=== PATIENT | male | born 1950 | race Caucasian/White ===

== ENCOUNTER 2024-05-19 08:24 | Inpatient (IN) | payer OTHER ==
[2024-05-19] MEDS ORDERED: NA CHLORIDE 0.9% 1,000 ML ONE (09:40)
[2024-05-19] MEDS ORDERED: BISACODYL 10 MG RECTAL SUPP ONE (09:40)
[2024-05-19] MEDS ORDERED: ASPIRIN 81 MG CHEWABLE TABLET ONE (09:40)
[2024-05-19] MEDS ORDERED: LACTULOSE 20 GM/30 ML UCUP ONE (09:41)
[2024-05-19 10:18] LABS: Absolute Lymphocytes (CBC) 0.5 K/uL (0.7-4.9); Absolute Monocytes 1.1 K/uL (0.1-1.3); Absolute Neutrophil 8.1 K/uL (1.8-8.0); Basophils % 0.2 % (0-1.3); Eosinophils % 0.3 % (0-4.4); Hematocrit 45.9 % (39.6-49.0); Hemoglobin 14.8 g/dL (13.6-17.9); Lymphocytes % 5.3 % (15.3-44.8); MCH 30.9 pg (27.0-35.0); MCHC 32.2 g/dL (32.0-36.0); MPV 7.8 fL (7.6-11.3); Monocytes % 10.9 % (3.3-12.3); Neutrophils % 83.3 % (41.7-73.7); Platelets 310 thou/uL (152-406); RBC Red Blood Cell Count 4.78 M/uL (4.33-5.43); Red Cell Distribution Width 14.6 % (12.1-15.2)
[2024-05-19 10:21] LABS: PT Prothrombin Time 13.9 SECONDS (9.4-12.5); Protime INR 1.25
--- NOTE | 2024-05-19 10:24 | RAD REPORT ---
EXAM: Head Brain Wo Cont HISTORY: HEADACHE COMPARISON: None TECHNIQUE: Multiple contiguous axial images were obtained for a CT of the brain without contrast. Sag ittal and coronal reformats were performed. One or more of the following dose reduction techniques were used: Automated exposure control, adjus tment of the mA and kV according to patient size, and iterative reconstruction. Unless otherwise specified, incidental findings do not require dedicated imaging follow-up. FINDINGS: No evidence of hydrocephalus, intracranial hemorrhage, or extra-axial fluid collection. Mild brain atrophy with mild periventricular and deep white matter chronic microvascular ischemic ch anges present. The calvarium is intact. The visualized paranasal sinuses and mastoid air cells are essentially clear . IMPRESSION: No evidence of acute intracranial abnormality.
--- NOTE | 2024-05-19 10:26 | RAD REPORT ---
EXAMINATION: ONE VIEW CHEST XR CLINICAL INDICATION: Male, 73 years old.,CHEST PAIN TECHNIQUE: Frontal chest projection is submitted. Examination is limited by patient positioning and t echnique. COMPARISON: No prior exam. FINDINGS: Large right pleural effusion. Hazy opacities in the central right lung, could relate to atelectasis o r a degree of edema. Left lung is clear, although there is some leftward shift of the mediastinal structures. No pneumothorax. The heart is upper limit of normal in size. IMPRESSION: Large right pleural effusion. Central hazy right lung opacities, could reflect atelectasis or a degre e of edema.
--- NOTE | 2024-05-19 10:45 | RAD REPORT ---
EXAMINATION: Extrem Venous W Compress Arslan CLINICAL INDICATION: [facility] MAIN Pain;Swelling Bed Name: 5 N TECHNIQUE: Complete bilateral duplex sonography of the BILATERAL lower extremity veins was performed. The examination included compression for vein patency, color Doppler imaging and flow augmentation in response to distal compression of the distal external iliac, common femoral, femoral, popliteal, t ibial, and great and small saphenous veins. COMPARISON: No prior exam. FINDINGS: Partial compressibility of the proximal left great saphenous vein. Duplex sonography testing of the v eins of the BILATERAL lower extremity was performed. Color flow imaging shows all veins to be compressible with [id number] color filling. Pulsatile and phasic flow is present within all lower e xtremity deep and remainder of the superficial veins examined. IMPRESSION: There is no deep vein vein thrombosis. Partial compressibility of the proximal left great saphenous vein, may relate to superficial thrombop hlebitis.
--- NOTE | 2024-05-19 10:52 | RAD REPORT ---
EXAM: CT CHEST, ABDOMEN AND PELVIS WITHOUT CONTRAST CLINICAL INDICATION: Male, 73 years old. HS MAIN CONSTIPATION NO CONTRAST Bed Name: 5 TECHNIQUE: CT chest, abdomen and pelvis was performed, without IV contrast, as per department protoco l. Axial, sagittal and coronal reconstructions were obtained. One or more of the following dose reduction techniques were used: Automated exposure control, adjustment of the mA and/or kV according to the patient size, and/or iterative reconstruction. Unless otherwise specified, incidental findings do not require dedicated imaging follow-up. COMPARISON: No prior exam. FINDINGS: The lack of intravenous contrast limits the sensitivity of this exam for evaluation of solid visceral organs, vascular structures, and retroperitoneum. Chest: LOWER NECK/CHEST WALL: Visualized thyroid gland and soft tissues are normal. LUNGS AND AIRWAYS: Airways are clear. Central right lung patchy groundglass opacification, could refl ect atelectasis or a mild degree of edema.. No nodules. PLEURA: Large right pleural effusion. Expansile appearance at the right base, and lobulation along th e visceral pleura, suggesting loculation. Mild pleural thickening noted along the costophrenic angle.. No pneumothorax. Hemidiaphragms are normally positioned. MEDIASTINUM AND LYMPH NODES: No mediastinal mass or fluid collection. Normal size mediastinal, hilar, and axillary lymph nodes. THORACIC AORTA: Normal caliber and configuration. PULMONARY ARTERIES: Normal caliber. HEART: Unremarkable. Abdomen/Pelvis LIVER: Normal in size and contour. No focal lesion. GALLBLADDER/BILE DUCTS: No biliary ductal dilatation. PANCREAS: No mass, ductal dilation, or thalia-pancreatic fluid. SPLEEN: Normal size. No focal lesion. ADRENALS: Normal; no mass. KIDNEYS AND URETERS: Normal size and contour. No hydronephrosis. GASTROINTESTINAL TRACT: Stomach is non-dilated. Small bowel has normal course and caliber. No colonic wall thickening or pericolonic inflammatory changes. PERITONEUM: Mild free pelvic fluid in the cul-de-sac. No free air. LYMPH NODES: No lymphadenopathy. ABDOMINAL AORTA AND OTHER VESSELS: Normal caliber aorta and IVC. URINARY BLADDER: Normal contour. REPRODUCTIVE ORGANS: No pathologic process. MUSCULOSKELETAL: No acute or suspicious osseous abnormality. ADDITIONAL FINDINGS: None IMPRESSION: Large right pleural effusion with findings suggesting at least partial loculation. Central right lung patchy groundglass opacification, could reflect atelectasis or a mild degree of ed zhou. Trace free pelvic fluid. No other acute findings in the abdomen and pelvis.
--- NOTE | 2024-05-19 11:37 | EDPHYS ---
Physician Documentation [facility] Name: Anderson Duenas Age: 73 yrs Sex: Male : 1950 Arrival Date: 05/19/2024 Time: 08:24 Bed 5 Private MD: Hipolito Ash HPI: 05/19 11:28 This 73 yrs old Male presents to ER via Wheelchair with complaints of Cardiac radha work up Per Dr Godinez. 11:28 The patient presents with pain, swelling. The complaints affect the right leg and left radha leg. Context: The problem was sustained at an unknown site, resulted from an unknown cause, the patient can fully bear weight. Onset: The symptoms/episode began/occurred 5 day(s) ago. Modifying factors: The symptoms are alleviated by nothing. the symptoms are aggravated by nothing. Associated signs and symptoms: Pertinent positives: swelling, of the right leg and left leg. The patient has shortness of breath with light activity, while working. The patient's shortness of breath is aggravated by exertion, light activity, supine position, talking, walking, is alleviated by rest, sitting up, application of supplemental oxygen. weak, dementia, progressive sob, edema. Historical: - Allergies: 08:51 No Known Allergies; iw - PMHx: 08:51 Hypertensive disorder; iw - PSHx: 08:51 hand; iw - Immunization history:: Adult Immunizations up to date. - Infectious Disease History:: Denies. - Social history:: Smoking status: Patient denies any tobacco usage or history of. Smoking status: Patient/guardian denies using tobacco, but has a distant history of tobacco abuse. ROS: 11:29 Constitutional: Negative for fever, chills, and weight loss, Eyes: Negative for injury, radha pain, redness, and discharge, ENT: Negative for injury, pain, and discharge, Neck: Negative for injury, pain, and swelling, Cardiovascular: Negative for chest pain, palpitations, and edema, Abdomen/GI: Negative for abdominal pain, nausea, vomiting, diarrhea, and constipation, Back: Negative for injury and pain, : Negative for injury, bleeding, discharge, and swelling, Skin: Negative for injury, rash, and discoloration, Neuro: Negative for headache, weakness, numbness, tingling, and seizure, Psych: Negative for depression, anxiety, suicide ideation, homicidal ideation, and hallucinations, Allergy/Immunology: Negative for hives, rash, and allergies, Endocrine: Negative for neck swelling, polydipsia, polyuria, polyphagia, and marked weight changes, Hematologic/Lymphatic: Negative for swollen nodes, abnormal bleeding, and unusual bruising, 11:29 Respiratory: Positive for cough, shortness of breath, at rest. 11:29 MS/extremity: Positive for pain, swelling, tenderness, of the right leg and left leg, Exam: 11:29 Constitutional: This is a well developed, well nourished patient who is awake, alert, radha and in no acute distress. Head/Face: Normocephalic, atraumatic. Eyes: Pupils equal round and reactive to light, extra-ocular motions intact. Lids and lashes normal. Conjunctiva and sclera are non-icteric and not injected. Cornea within normal limits. Periorbital areas with no swelling, redness, or edema. ENT: Nares patent. No nasal discharge, no septal abnormalities noted. Tympanic membranes are normal and external auditory canals are clear. Oropharynx with no redness, swelling, or masses, exudates, or evidence of obstruction, uvula midline. Mucous membranes moist. Neck: Trachea midline, no thyromegaly or masses palpated, and no cervical lymphadenopathy. Supple, full range of motion without nuchal rigidity, or vertebral point tenderness. No Meningismus. Chest/axilla: Normal chest wall appearance and motion. Nontender with no deformity. No lesions are appreciated. Cardiovascular: Regular rate and rhythm with a normal S1 and S2. No gallops, murmurs, or rubs. Normal PMI, no JVD. No pulse deficits. Abdomen/GI: Soft, non-tender, with normal bowel sounds. No distension or tympany. No guarding or rebound. No evidence of tenderness throughout. Back: No spinal tenderness. No costovertebral tenderness. Full range of motion. Male : Normal genitalia with no discharge or lesions. Skin: Warm, dry with normal turgor. Normal color with no rashes, no lesions, and no evidence of cellulitis. Neuro: Awake and alert, GCS 15, oriented to person, place, time, and situation. Cranial nerves II-XII grossly intact. Motor strength 5/5 in all extremities. Sensory grossly intact. Cerebellar exam normal. Normal gait. Psych: Awake, alert, with orientation to person, place and time. Behavior, mood, and affect are within normal limits. 11:29 Respiratory: mild respiratory distress is noted, Respirations: no acute changes, that is mild is noted, Breath sounds: decreased breath sounds, that are moderate, are located in both bases, are heard in the right middle lobe, right lower lobe, right posterior middle lobe and right posterior lower lobe, rhonchi, that are mild, are scattered, stridor, is not appreciated, + upper airway congestion. Respiratory rate: 20 11:48 ECG was reviewed by the Attending Physician. [facility] Vital Signs: 08:49 BP 126 / 34; Pulse 79; Resp 16; Temp 97.1; Pulse Ox 99% on R/A; Weight 78.02 kg; Height iw 6 ft. 1 in. ; 10:17 BP 121 / 48; Pulse 70; Resp 16; Pulse Ox 92% ; bp 11:19 BP 130 / 42; Pulse 71; Resp 15; Pulse Ox 92% ; hb 14:00 BP 124 / 54; Pulse 83; Resp 16; Temp 98.1; Pulse Ox 97% on R/A; bp 15:03 BP 126 / 62; Pulse 74; Resp 16; Temp 98; Pulse Ox 94% ; bp 08:49 Body Mass Index 22.69 (78.02 kg, 185.42 cm) iw MDM: 08:33 Medical Screening Exam initiated radha 11:31 Differential diagnosis: Anemia Anxiety Reaction asthma, Bronchitis CHF exacerbation. radha Antibiotic administration: Not indicated. Differential Diagnosis altered mental status, sepsis, flu. Immunization status: Pneumococcal vaccine: within last 5 years. Influenza vaccine: within last 5 years. Data reviewed: vital signs, nurses notes, lab test result(s), EKG, radiologic studies, plain films. Consideration of Admission/Observation Patient was admitted/placed on observation. Escalation of care including admission/observation considered. I considered the following discharge prescriptions or medication management in the emergency department Medications were administered in the Emergency Department. See MAR. Independent interpretation of the following test(s) in the Emergency Department EKG: See my EKG interpretation above. Test considered but Not performed: Ultrasound no 2 d echo. Historians other than the Patient: Spouse/Significant Other: well/ better informed. Care significantly affected by the following chronic conditions: Hypertension, weight loss. Counseling: I had a detailed discussion with the patient and/or guardian regarding the historical points, exam findings, and any diagnostic results supporting the discharge/admit diagnosis, lab results, radiology results, the need for further work-up and treatment in the hospital. 05/19 08:36 Order name: Basic Metabolic Panel [facility] 05/19 08:36 Order name: CBC with Diff; Complete Time: 11:23 [facility] 05/19 08:36 Order name: LFT's [facility] 05/19 08:36 Order name: Magnesium [facility] 05/19 08:36 Order name: NT PRO-BNP [facility] 05/19 08:36 Order name: PT-INR; Complete Time: 11:23 [facility] 05/19 08:36 Order name: Troponin HS [facility] 05/19 08:36 Order name: Urinalysis w/ reflexes [facility] 05/19 08:36 Order name: Lipase [facility] 05/19 08:36 Order name: XRAY Chest (1 view); Complete Time: 11:23 [facility] 05/19 09:01 Order name: CT Head Brain wo Cont; Complete Time: 11: [facility] 05/19 09:01 Order name: US Extremity Venous W Compression Arslan; Complete Time: 11: [facility] 05/19 09:14 Order name: Chest Abd Pelvis Wo Con; Complete Time: 11:23 [facility] 05/19 12:59 Order name: US [facility] 05/19 13:13 Order name: CT [facility] 05/19 13:55 Order name: RAD [facility] 05/19 14:46 Order name: US [facility] 05/19 08:36 Order name: EKG; Complete Time: 08:36 [facility] 05/19 11:45 Order name: CONS Physician Consult [facility] 05/19 08:36 Order name: Cardiac monitoring; Complete Time: 10: [facility] 05/19 08:36 Order name: EKG - Nurse/Tech; Complete Time: 10: [facility] 05/19 08:36 Order name: IV Saline Lock; Complete Time: 10: [facility] 05/19 08:36 Order name: Labs collected and sent; Complete Time: 10: [facility] 05/19 08:36 Order name: O2 Per Protocol; Complete Time: 10: [facility] 05/19 08:36 Order name: O2 Sat Monitoring; Complete Time: 10: [facility] 05/19 10:45 Order name: Labs - recollect needed: re collect green top; Complete Time: 11:09 bd EC:48 Rate is 69 beats/min. Rhythm is regular. QRS Drewsey is Normal. MO interval is normal. QRS radha interval is normal. QT interval is normal. No Q waves. T waves are Normal. Clinical impression: NSR w/ Non-specific ST/T Changes, Abnormal EKG without significant change, and No evidence of ischemia. Interpreted by me. Reviewed by me. Administered Medications: 10:08 Drug: Aspirin PO Chewable Tablet 162 mg PO once Route: PO; bp 10:57 Follow up: Response: No adverse reaction bp 10:08 Drug: NS 0.9% IV 1000 ml IV at 125 ml/hr continuous Route: IV; Rate: 125 ml/hr; Site: bp right forearm; 15:04 Follow up: IV Status: Infusion continued upon admission bp 10:08 Drug: Dulcolax MO Suppository 10 mg MO once Route: MO; bp 10:57 Follow up: Response: No adverse reaction bp 10:08 Drug: Lactulose PO 30 grams 45 ml PO once Volume: 45 ml; Route: PO; bp 10:57 Follow up: Response: No adverse reaction bp Disposition Summary: 05/19/24 11:36 Hospitalization Ordered Notes: Hospitalization Status: Inpatient Admission radha Provider: Feliciano Godinez cha Location: Telemetry/MedSurg (Inpatient) radha Condition: Fair radha Problem: new radha Symptoms: are unchanged radha Bed/Room Type: Standard [facility] Room Assignment: 222(05/19/24 14:02) bd Diagnosis - Dyspnea radha - Pleural effusion, not elsewhere classified - large right radha - Edema, unspecified radha Forms: - Medication Reconciliation Form radha - SBAR form radha - Leadership Thank You Letter radha Signatures: Dispatcher [employer] EDMS Ellen Ramirez Corey, MD MD cha Williams, Irene, RN RN iw Rigoberto Johnston RN RN bp Corrections: (The following items were deleted from the chart) 09:02 09:02 Abdomen Pelvis Wo Con+CT.RAD.BRZ ordered. EDMS EDMS 09:02 09:02 Extrem Venous W Compression Arslan+US.RAD.BRZ ordered. EDMS EDMS 14:02 11:36 radha bd
--- NOTE | 2024-05-19 11:37 | ER ---
Nurse's Notes [facility] Name: Anderson Duenas Age: 73 yrs Sex: Male : 1950 Arrival Date: 05/19/2024 Time: 08:24 Bed 5 Private MD: Diagnosis: Dyspnea;Pleural effusion, not elsewhere classified-large right;Edema, unspecified Presentation: 05/19 08:49 Chief complaint: Patient states: has lost a lot of weight , has been weak, not eating iw enough, has a low appetite. Ebola Screen: No symptoms or risks identified at this time. Initial Sepsis Screen: Does the patient meet any 2 criteria? No. Patient's initial sepsis screen is negative. Does the patient have a suspected source of infection? No. Patient's initial sepsis screen is negative. Risk Assessment: Do you want to hurt yourself or someone else? Patient reports no desire to harm self or others. 08:49 Method Of Arrival: Wheelchair iw 08:49 Acuity: SENG 3 iw 08:49 Onset of symptoms was May 17, 2024. iw 08:51 Coronavirus screen: At this time, the client does not indicate any symptoms associated iw with coronavirus-19. Triage Assessment: 09:00 General: Appears in no apparent distress. Behavior is calm, cooperative, appropriate bp for age. Pain: Denies pain. EENT: No deficits noted. Neuro: No deficits noted. Cardiovascular: Rhythm is sinus rhythm. Respiratory: No deficits noted. GI: No signs and/or symptoms were reported involving the gastrointestinal system. : No signs and/or symptoms were reported regarding the genitourinary system. Derm: No deficits noted. Musculoskeletal: No deficits noted. Historical: - Allergies: 08:51 No Known Allergies; iw - PMHx: 08:51 Hypertensive disorder; iw - PSHx: 08:51 hand; iw - Immunization history:: Adult Immunizations up to date. - Infectious Disease History:: Denies. - Social history:: Smoking status: Patient denies any tobacco usage or history of. Smoking status: Patient/guardian denies using tobacco, but has a distant history of tobacco abuse. Screenin:00 [facility] ED Fall Risk Assessment (Adult) History of falling in the last 3 months, bp including since admission No falls in past 3 months (0 pts) Confusion or Disorientation No (0 pts) Intoxicated or Sedated No (0 pts) Impaired Gait No (0 pts) Mobility Assist Device Used No (0 pt) Altered Elimination No (0 pt) Score/Fall Risk Level 0 - 2 = Low Risk Oriented to surroundings. Abuse screen: Denies threats or abuse. Denies injuries from another. Nutritional screening: No deficits noted. Tuberculosis screening: No symptoms or risk factors identified. Assessment: 09:00 General: Appears in no apparent distress. Behavior is calm, cooperative, appropriate bp for age. 11:20 Reassessment: Patient appears in no apparent distress at this time. No changes from hb previously documented assessment. Patient and/or family updated on plan of care and expected duration. Pain level reassessed. 13:00 Reassessment: ADMIT IN PROCESS. bp 14:30 Reassessment: REPORT FAXED FOR RM 222. bp Vital Signs: 08:49 BP 126 / 34; Pulse 79; Resp 16; Temp 97.1; Pulse Ox 99% on R/A; Weight 78.02 kg; Height iw 6 ft. 1 in. ; 10:17 BP 121 / 48; Pulse 70; Resp 16; Pulse Ox 92% ; bp 11:19 BP 130 / 42; Pulse 71; Resp 15; Pulse Ox 92% ; hb 14:00 BP 124 / 54; Pulse 83; Resp 16; Temp 98.1; Pulse Ox 97% on R/A; bp 15:03 BP 126 / 62; Pulse 74; Resp 16; Temp 98; Pulse Ox 94% ; bp 08:49 Body Mass Index 22.69 (78.02 kg, 185.42 cm) iw ED Course: 08:33 Patient arrived in ED. mr 08:33 Hipolito Stoll MD is Attending Physician. radha 08:50 Triage completed. iw 08:57 Rigoberto Johnston, RN is Primary Nurse. bp 09:00 Arm band placed on. bp 09:00 Patient has correct armband on for positive identification. bp 09:19 CT Head Brain wo Cont In Process Unspecified. EDMS 09:19 Chest Abd Pelvis Wo Con In Process Unspecified. EDMS 09:34 US Extremity Venous W Compression Arslan In Process Unspecified. EDMS 09:46 XRAY Chest (1 view) In Process Unspecified. EDMS 10:08 Initial lab(s) drawn, by me, sent to lab. EKG done, by ED staff, reviewed by Hipolito Stoll MD. Inserted saline lock: 22 gauge in right forearm, using aseptic technique. Blood collected. Flushed with 10 mL NS. 11:34 Feliciano Godinez MD is Hospitalizing Provider. radha 14:48 [id number] CM met with his male friend, at the bedside, in the ED exam room. ane Patient identified by name and . Demographic sheet confirmed. Patient states he lives with his Mary in a single story home. He reports that prior to admission, he preforms ADLs independently, just "slowly". No DME in the home, no HH, home oxygen, or other medical services at this time. PCP is Dr. Godinez. Patient is unsure if he has an MPOA in place or not. His preferred plan is to return home upon discharge and states his Mary will transport him home. CM team will continue to follow and coordinate care during this hospital stay. 15:03 No provider procedures requiring assistance completed. Patient admitted, IV remains in bp place. 15:05 Provided Education on: N/A. bp Administered Medications: 10:08 Drug: Aspirin PO Chewable Tablet 162 mg PO once Route: PO; bp 10:57 Follow up: Response: No adverse reaction bp 10:08 Drug: NS 0.9% IV 1000 ml IV at 125 ml/hr continuous Route: IV; Rate: 125 ml/hr; Site: bp right forearm; 15:04 Follow up: IV Status: Infusion continued upon admission bp 10:08 Drug: Dulcolax NJ Suppository 10 mg NJ once Route: NJ; bp 10:57 Follow up: Response: No adverse reaction bp 10:08 Drug: Lactulose PO 30 grams 45 ml PO once Volume: 45 ml; Route: PO; bp 10:57 Follow up: Response: No adverse reaction bp Medication: 09:00 VIS not applicable for this client. bp Outcome: 11:36 Decision to Hospitalize by Provider. radha 15:05 Admitted to Med/surg accompanied by nurse, family with patient, via stretcher, room bp 222, with chart, 15:05 Condition: stable 15:05 Instructed on the need for admit, 15:11 Patient left the ED. iw Signatures: Dispatcher [employer] EDMS Hipolito Stoll MD MD cha Rivera, Mary, Reg Reg Evangelina Raymond RN RN iw Viry Castle, RN RN Rigoberto Navarrete RN RN bp Elliott, Andie RN RN ane Corrections: (The following items were deleted from the chart) 08:52 08:49 BP 116 / 31; Pulse 79bpm; Resp 16bpm; Pulse Ox 99% RA; Temp 97.1F; iw tod
[2024-05-19 11:53] LABS: Albumin/Globulin Ratio 0.6 (1.1-1.8); Anion Gap 9.9 mEq/L (5.0-15.0); Bilirubin Direct 0.6 mg/dL (0-0.2); Bilirubin Indirect, Calculated 0.5 mg/dL (0.2-0.8); Bilirubin Total 1.1 mg/dL (0.2-1.0); Globulin 3.5 g/dL (2.3-3.5); Magnesium 2.3 mg/dL (1.6-2.4); Potassium 3.9 mEq/L (3.5-5.1); Protein, Total 5.5 g/dL (6.4-8.2); Troponin High Sensitivity 28.5 pg/mL (<58.9)
[2024-05-19] MEDS: FUROSEMIDE 20 MG/ 2ML VIAL IV SCH ×2 (12:27→15:43)
--- NOTE | 2024-05-19 12:39 | P.CNS ---
Date of Consult: 05/19/24 Reason for Consult: Pleural effusion Chief Complaint: Shortness of breath History of Present Illness: Patient is 73 years of age admitted with progressive dyspnea lower extremity edema weight loss present at the bedside has been going on for quite some time p rior history of any coronary artery disease denies any fever chills or chest pain patient is disoriented confused Allergies No Known Allergies Allergy (Unverified 05/19/24 12:36) - Past Medical/Surgical History -: Hypertension Review of Systems is unable to be obtained Physical Examination General: Alert, Delirious Respiratory: Diminished (Condition on the right side) Cardiovascular: Regular rate/rhythm, Normal S1 S2, Edema (Significant peripheral edema with mottling of his toes), Systolic murmur (Loud systolic murmur) Gastrointestinal: Normal bowel sounds, Soft and benign Musculoskeletal: No clubbing Integumentary: No rashes, No breakdown Laboratory Data (last 24 hrs) 05/19/24 05/19/24 05/19/24 11:06 10:07 10:07 WBC 9.80 Hgb 14.8 Hct 45.9 Plt Count 310 PT 13.9 H INR 1.25 Sodium 139 Potassium 3.9 BUN 27 H Creatinine 0.70 Glucose 132 H Magnesium 2.3 Total Bilirubin 1.1 H AST 23 ALT 19 Alkaline Phosphatase 117 Lipase 35 - Problems (1) Pleural effusion due to congestive heart failure Current Visit: Yes Status: Acute Plan: Patient is 73 years of age with no significant past medical history does not smoke admitted with progressive dyspnea is currently delirious present at the bedside: Lower extremity edema patient has a massive right-sided pleural effusion factors for underlying malignancy has never smoked BNP significantly elevated her white count is normal function tests are also normal will patient will be admitted to the hospital evaluate for thoracentesis also given him some Lasix patient is tachypneic placed on BiPAP large thromboembolism urgent echocardiogram
--- NOTE | 2024-05-19 12:59 | RAD REPORT ---
EXAMChest CLINICAL HISTORY: Pleural effusion. TECHNIQUE: Sonographic evaluation of the right pleural space performed. FINDINGS: Large right pleural effusion. No loculation seen IMPRESSION: Large right pleural effusion
--- NOTE | 2024-05-19 13:12 | RAD REPORT ---
EXAM:Chest Angio CLINICAL HISTORY: Chest pain TECHNIQUE: 100 cc 370 Isovue administered intravenously. This examination was performed according to an angiographic protocol with 3D post-processing. This involves 3D reconstructions, MIPs, volume rendered images and/or shaded surface rendering. One or more of the following dose reduction techniqu es were used: Automated exposure control, adjustment of the mA and/or kV according to patient size, and/or iterative reconstruction. Unless otherwise specified, incidental findings do not require dedic ated imaging follow-up. [id number]. COMPARISON: No prior exam. FINDINGS: A pulmonary embolus is not seen. Aortic root 4.6 cm No pericardial effusion. Large right pleural effusion which is partially subpulmonic. Minimal loculation. Right basilar atelec tasis.. Mild groundglass opacities right lung. IMPRESSION: No evidence of a pulmonary embolism. Large right pleural effusion. 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
--- NOTE | 2024-05-19 13:55 | RAD REPORT ---
Procedure: Chest Single View HISTORY: Thoracentesis FINDINGS: A right pneumothorax is not seen status post thoracentesis
--- NOTE | 2024-05-19 14:45 | RAD REPORT ---
PROCEDURE: ULTRASOUND GUIDED THORACENTESIS CLINICAL INDICATION: [facility] MA[facility] R sided effusion PROCEDURE DETAILS: Consent: Informed consent for the procedure including risks, benefits and alternatives was obtained a nd time-out was performed prior to the procedure. Preparation: The site was prepared and draped using maximal sterile barrier technique including cutan eous antisepsis. Procedure: Initial limited thoracic ultrasound was performed and a large pleural effusion was seen. A safe window for thoracentesis was identified with ultrasound to dayron a suitable access site. Local anesthesia was administered. The right pleural cavity was accessed, and fluid return confirmed positi on. A 6F Fhu-J-Ohzvrckm catheter was placed and fluid was drained. The catheter was removed, and a sterile bandage was applied. Estimated blood loss: Less than 10 mL. IMPRESSION: SUCCESSFUL RIGHT ultrasound guided thoracentesis, yielding 1500 mL of serosanguineous fluid. Additional procedure(s): Limited thoracic ultrasound. PLAN: Aspirated fluid was sent for analysis.
[2024-05-19] MEDS ORDERED: ALBUTEROL 2.5 MG/3 ML NEB SOL NEB PRN (14:57)
[2024-05-19] MEDS ORDERED: IPRATROPIUM BROM 0.5MG/2.5ML NEB PRN (14:57)
[2024-05-19] MEDS ORDERED: ONDANSETRON 4 MG/2 ML VIAL IV PRN (14:57)
[2024-05-19] MEDS ORDERED: MORPHINE 2 MG/ML SYR IV PRN (14:57)
[2024-05-19] MEDS ORDERED: ACETAMINOPHEN 325 MG TABLET PO PRN (14:57)
[2024-05-19] MEDS ORDERED: FUROSEMIDE 20 MG/ 2ML VIAL IV SCH (17:00)
[2024-05-19 17:05] LABS: Body Fluid WBC 2969 /mm^3
[2024-05-19 18:16] LABS: Tube # #2
[2024-05-19 18:17] LABS: Appearance TURBID (CLEAR); Body Fluid Lymphocytes 5 %; Body Fluid Source PLEURAL; Color of Supernate Not Xanthochromic (Not Xantho); Color of fluid Red (COLORLESS); Fluid Total Cells Count 100
[2024-05-19] MEDS: ENOXAPARIN 40 MG/0.4 ML SQ SCH (18:25)
--- NOTE | 2024-05-19 22:18 | HP ---
Date of Admission: 05/19/2024 Chief Complaint: Leg swelling and shortness of breath. History Of Present Illness: This is a 73-year-old very pleasant male patient, who came into my offic e day before yesterday with complaints of shortness of breath and leg swelling. The patient was not quite clear on details of his symptoms, but after talking to him for some time, we found out that he has been having some problems with shortness of breath with activity lately and says that he is not a ble to sleep well at night time also and we could not get clear-cut details if he could not sleep wel l at night because of shortness of breath or some other reason, but obviously that is a relatively ne w problem for him, so I believe that it is associated with some degree of shortness of breath at nigh ttime. Denies any chest pain. No diaphoresis. No nausea, vomiting. No abdominal pain. He has bee n having some upper back pain lately and has seen chiropractor for that lately. After the patient wa s evaluated, he was noted to have significant systolic murmur with presence of crackles in lower half of both lungs and significant bilateral pedal edema, so I was concerned about congestive heart failu re and some severe valvular heart disease and it was recommended for the patient to get admitted to [facility] for further evaluation and management. Unfortunately, he refused to do so as he told me he had to go home to take care of certain things including his and he informed me that he will c ome back for admission in 2 days which is today and as he had mentioned, he came to emergency room th is morning and after he was evaluated, he was admitted to the hospital. After the patient's admissio n to the hospital, Pulmonary and Cardiology consultation was requested and Dr. Diaz has already s een him from Pulmonary Service and details were discussed with him as well. I saw him this evening i n his hospital room and his sister was present with him at bedside. Allergies: NO KNOWN ALLERGIES. Medications: He does not take any medications at home. Review of Systems: Cardiovascular: As mentioned above. Respiratory: As mentioned above. 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 All other systems reviewed and negative. Past Medical History: Significant for hypertension, hyperlipidemia, benign prostatic hypertrophy, os teoarthritis at multiple sites. Past Surgical History: Tonsillectomy, appendectomy, carpal tunnel syndrome surgery in right hand don e in April of 2023. Family History: Father , had myocardial infarction and Parkinson's disease. Mother , had se psis after gallbladder surgery and sister has diabetes and hypertension. Social History: Negative for smoking. Use of alcohol, drinks 1 or 2 beers daily. Physical Examination: Vital Signs: Temperature 98.3, pulse 68, respiratory rate 24, blood pressure is 140/51, oxygen satur ation 94% on room air. Height 6 feet, weight 161 pounds. General: Awake, alert, oriented, not in distress. HEENT: Head atraumatic, normocephalic. Conjunctivae nonerythematous. Sclerae white. Mouth, no thr ush or edema noted. Ears/Nose, no mass, lesion, discharge noted. Neck: Supple. No JVD, lymph nodes, bruit, thyromegaly noted. Lungs: Diminished air entry in the right lower lung field with presence of bilateral rales noted in lower 1/3 of both lung jordan. Heart: Heart sounds normal. Presence of loud systolic murmur. Abdomen: Soft, bowel sounds normal. No guarding, rigidity, tenderness, mass, hepatosplenomegaly, dis tention, or bruit noted. Extremities: Bilateral grade 3 pedal edema extending up to both knees. Skin: No rash, ulcer, cellulitis. Lymphatics: No lymph node enlargement in neck, supraclavicular, infraclavicular region. Neuro: No focal neurological deficit. Chest: Unremarkable. External Genitalia: Deferred. Rectal: Deferred. Laboratory Data: White count 9.8, hemoglobin 14.8, platelets 310. Sodium 139, potassium 3.9, chlori de 105, bicarb 28, BUN 27, creatinine 0.70, glucose 132. Liver function tests unremarkable. Troponi n 28.5 on the first set and 33.6 on the second set. ProBNP 8863. Lipase 35. Chest x-ray shows larg e right-sided pleural effusion. CAT scan of the chest per PE protocol was negative for pulmonary emb olism and showed large right-sided pleural effusion. Aortic root aneurysm with 4.6 cm size. CAT sca n of the head was negative for any acute intracranial changes. CAT scan of the chest, abdomen, pelvi s was negative except large right-sided pleural effusion. Venous Doppler of lower extremity was nega tive for DVT. Impression: 1.Congestive heart failure, acute. 2.Valvular heart disease. 3.Hypertension. 4.Hyperlipidemia. 5.Osteoarthritis, multiple sites. 6.Benign prostatic hypertrophy. 7.Memory loss, rule out dementia. Plan: We will admit the patient to hospital for further evaluation and management of this problem. The patient is appropriate for inpatient and is expected to spend 2 midnights in the hospital. The eun mcadams had thoracentesis done by interventional radiologist after his admission to the hospital under ultrasound guidance and about 1500 cc of fluid was removed and Dr. Diaz has ordered appropriate testing to be done on this pleural fluid and we will follow up on those results and also follow up [facility] Dr. Diaz. Echocardiogram was ordered to evaluate left ventricular ejection fraction and to lo ok into this valvular heart disease that I am concerned about and depending on the findings of echo a nd Cardiology consultation, we will provide the patient with final recommendation on the treatment pl an. We will go ahead and continue Lasix per order. Monitor intake, output, daily weight, electrolyt es, and renal function. DVT prophylaxis will be given using Lovenox per order. We will monitor bloo d pressure if necessary. Consider antihypertensive medication, but not necessary at this point. For hyperlipidemia, no need for further intervention and the patient is not on any medication for that. For benign prostatic hypertrophy, the patient does not take any medications and no need for any inte rvention on it. The patient is having some memory problem lately, that is resulting in some confusio n and he will need to be evaluated for dementia workup by neurologist on an elective outpatient basis after we address current more acute problem which is his cardiac problem. Total time spent today was 85 minutes that includes communication with ER physician, communication wi body builder, review of emergency room visit record, and performing today's evaluation and manage ment. TJ/EVA Voice ID: [id number]
[2024-05-20 04:29] LABS: Urine Bilirubin NEGATIVE (Negative); Urine Blood Negative (Negative); Urine Clarity Clear (Clear); Urine Color Yellow (Yellow); Urine Glucose NEGATIVE (Negative); Urine Ketones NEGATIVE (Negative); Urine Microscopic Reflex YN NO UMIC; Urine Nitrite NEGATIVE (Negative); Urine Protein NEGATIVE (Negative); Urine Urobilinogen Normal (Normal); Urine pH 5.5 (5.0-7.0)
[2024-05-20 04:51] LABS: Absolute Eosinophils 0.2 K/uL (0-0.5); Absolute Lymphocytes (CBC) 0.8 K/uL (0.7-4.9); Absolute Monocytes 1.1 K/uL (0.1-1.3); Absolute Neutrophil 6.2 K/uL (1.8-8.0); Basophils % 0.3 % (0-1.3); Hematocrit 43.4 % (39.6-49.0); Hemoglobin 14.3 g/dL (13.6-17.9); Lymphocytes % 9.5 % (15.3-44.8); MCH 31.1 pg (27.0-35.0); MCV 94.2 fL (80-100); MPV 7.7 fL (7.6-11.3); Monocytes % 13.3 % (3.3-12.3); Neutrophils % 73.9 % (41.7-73.7); Platelets 334 thou/uL (152-406); Red Cell Distribution Width 14.6 % (12.1-15.2)
[2024-05-20 05:05] LABS: Anion Gap 6.8 mEq/L (5.0-15.0); Potassium 4.8 mEq/L (3.5-5.1)
--- NOTE | 2024-05-20 11:41 | P.PN ---
Subjective Date of Service: 05/20/24 Chief Complaint: Congestive heart failure Subjective: Improving (Patient is improving doing much better more alert responsive cooperative) Review of Systems General: Weakness Respiratory: Shortness of Breath Physical Examination - Vital Signs Temperature: 96.9 F Blood Pressure: 135/56 Pulse: 66 Respirations: 12 Pulse Ox (%): 90 - Physical Exam General: Alert, Oriented x2 Respiratory: Clear to auscultation bilaterally, Crackles/rales Cardiovascular: No edema, Regular rate/rhythm, Systolic murmur - Studies Laboratory Data (last 24 hrs) 05/19/24 11:06 Sodium 139 Potassium 3.9 BUN 27 H Creatinine 0.70 Glucose 132 H Magnesium 2.3 Total Bilirubin 1.1 H AST 23 ALT 19 Alkaline Phosphatase 117 Lipase 35 Assessment And Plan - Current Problems (Diagnosis) (1) Pleural effusion due to congestive heart failure Current Visit: Yes Status: Acute Plan: Patient is doing much better s/p thoracentesis x-ray no evidence of pneumothorax significant reduction in the right-sided pleural effusion neutrophilic predominant pleural effusion history is pending preliminary echocardiogram shows regurgitant aortic valve added spironolactone patient is in negative fluid balance
--- NOTE | 2024-05-20 11:54 | P.CNS ---
Date of Consult: 05/20/24 Chief Complaint: Congestive heart failure History of Present Illness: Patient with no significant past medical cardiac history presented with worsening SOB, [place] ROSARIO and bilateral lower extremities swelling, patient also mention significant weight loss, denies chest pain, no palpitations, no syncope. Allergies No Known Allergies Allergy (Unverified 05/19/24 12:36) Home medications list reviewed: Yes - Past Medical/Surgical History -: Hypertension - Social History Smoking Status: Former smoker Alcohol use: No CD- Drugs: No Caffeine use: No Place of Residence: Home Review of Systems 10-point ROS is otherwise unremarkable Physical Examination Temp Pulse Resp BP Pulse Ox 96.9 F 66 12 135/56 L 90 L 05/20/24 11:41 05/20/24 11:41 05/20/24 11:41 05/20/24 11:41 05/20/24 11:41 General: Alert, In no apparent distress HEENT: Atraumatic, PERRLA, Mucous membr. moist/pink, EOMI, Sclerae nonicteric Neck: Supple, 2+ carotid pulse no bruit, No LAD, Without JVD or thyroid abnormality Respiratory: Diminished, Crackles/rales Cardiovascular: Regular rate/rhythm, Normal S1 S2, Edema (+2 to bilateral lower extremities) Gastrointestinal: Normal bowel sounds, No tenderness Musculoskeletal: No tenderness Integumentary: No rashes Neurological: Normal gait, Normal speech, Normal tone, Normal affect Lymphatics: No axilla or inguinal lymphadenopathy Laboratory Data (last 24 hrs) 05/19/24 11:06 Sodium 139 Potassium 3.9 BUN 27 H Creatinine 0.70 Glucose 132 H Magnesium 2.3 Total Bilirubin 1.1 H AST 23 ALT 19 Alkaline Phosphatase 117 Lipase 35 - Problems (1) Acute on chronic diastolic heart failure Current Visit: Yes Status: Acute Plan: Patient Echo shows Grade 2 DD, patient BNP is elevated but also patient is very malnourished with low albumin agree with Lasix 20 mg IV BID Aldactone 25 mg daily Monitor input and output and electrolytes patient might ebenfit from albumin correction to avoid 3rd spacing. also patient need malignancy rule out due to significant weight loss. (2) Aortic regurgitation Current Visit: Yes Status: Acute Plan: looks moderate to severe on echo plan is to repeat echo in 6 months
--- NOTE | 2024-05-20 12:18 | EKG ---
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
[2024-05-20] MEDS: SPIRONOLACTONE 25 MG TABLET PO SCH (13:13)
--- NOTE | 2024-05-20 13:17 | ECHO ---
HEIGHT: 6 ft 1 in WEIGHT: 161 lb 11.2 oz DATE OF STUDY: 05/20/[address]: Hipolito Stoll MD 2-DIMENSIONAL: YES M.MODE: YES DOPPLER: YES COLOR FLOW: YES TDS: PORTABLE: YES DEFINITY: BUBBLE STUDY: DIAGNOSIS: CONGESTIVE HEART FAILURE/ PLEURAL EFFUSION CARDIAC HISTORY: CATHERIZATION: SURGERY: PROSTHETIC VALVE: PACEMAKER: MEASUREMENTS (cm) DIASTOLIC (NORMALS) SYSTOLIC (NORMALS) IVSd 1.2 (0.6-1.2) LA Diam 3.2 (1.9-4.0) LVEF 55% LVIDd 6.6 (3.5-5.7) LVIDs 5.1 (2.0-3.5) %FS 23% LVPWd 1.2 (0.6-1.2) Ao Diam 3.0 (2.0-3.7) 2 DIMENSIONAL ASSESSMENT: RIGHT ATRIUM: NORMAL LEFT ATRIUM: NORMAL RIGHT VENTRICLE: NORMAL LEFT VENTRICLE: MODERATELY DILATED TRICUSPID VALVE: MILD TRICUSPID REGURGITATION MITRAL VALVE: MILD MITRAL ANNULAR CALCIFICATION/ MILD MITRAL REGURGITATION PULMONIC VALVE: NORMAL AORTIC VALVE: MODERATE AORTIC REGURGITATION PERICARDIAL EFFUSION: NONE AORTIC ROOT: NORMAL LEFT VENTRICULAR WALL MOTION: NORMAL DOPPLER/COLOR FLOW: DIASTOLIC DYSFUNCTION COMMENTS: 1. MODERATELY DILATED LEFT VENTRICULAR CAVITY 2. NORMAL LEFT VENTRICULAR SYSTOLIC FUNCTION, EJECTION FRACTION 55%, NORMAL WALL MOTION 3. DIASTOLIC DYSFUNCTION 4. MODERATE AORTIC REGURGITATION 5. MILD MITRAL ANNULAR CALCIFICATION, MILD MITRAL REGURGITATION TECHNOLOGIST: JEANETH MEDRANO [facility]
[2024-05-20 15:15] VITALS: BMI 21.3
--- NOTE | 2024-05-20 21:57 | PN ---
Date of Progress Note: 05/20/2024 Subjective: The patient was seen this morning for followup. No new complaints or problems reported by patient. He was lying in bed, not in any distress, was able to sleep well last night. This morni ng when I saw him, he was not in any respiratory distress, maintaining adequate oxygenation on room a ir. Objective: Vital Signs: Reviewed. HEENT: Unremarkable. Lungs: Bilateral good equal air entry. Clear to auscultation except basal rales. Overall, better t jo before. Heart: Sounds normal. Abdomen: Soft. Bowel sounds normal. No guarding, rigidity, tenderness, distention. Extremities: Bilateral leg edema present, but better today than yesterday. Laboratory Data: White count 8.4, hemoglobin 14.3, platelets 334. Sodium 140, potassium 4.8, chlori de 103, bicarb 35, BUN 22, creatinine 0.83, glucose 110. ProBNP 10,340. Echocardiogram done today s hows ejection fraction 55%, diastolic dysfunction, [id number] aortic regurgitation, mild mitr al annular calcification, and mild mitral regurgitation. Impression: 1.Acute on chronic diastolic heart failure. 2.Aortic regurgitation. 3.Mitral regurgitation. 4.Pleural effusion. Plan: We will go ahead and continue current diuretic therapy. Continue to follow up with Cardiology and Pulmonary and Cardiology and Pulmonary consultation is appreciated. We will repeat blood work t omorrow. Depending on his condition tomorrow, we will decide if we can discharge him to go home tomorrow or not. Pleural fluid cytology is pending. TJ/MODL Voice ID: [id number] Report ID: [id number]
[2024-05-21 06:42] LABS: Anion Gap 6.4 mEq/L (5.0-15.0); Magnesium 1.8 mg/dL (1.6-2.4); Potassium 3.4 mEq/L (3.5-5.1)
[2024-05-21 06:46] LABS: Anion Gap 6.4 mEq/L (5.0-15.0); Potassium 3.4 mEq/L (3.5-5.1)
--- NOTE | 2024-05-21 11:09 | RAD REPORT ---
EXAMINATION: CT Abdomen Pelvis W Contrast CLINICAL INDICATION: Male, 73 years old. weight loss TECHNIQUE: CT abdomen and pelvis was performed, after the administration of IV contrast, [facility]. Axial, sagittal and coronal reconstructions were obtained. One or more of the following dose reduction techniques were used: Automated exposure control, adjustment of the mA and k V according to patient size, and iterative reconstruction. Unless otherwise specified, incidental findings do not require dedicated imaging follow-up. COMPARISON: Noncontrast CT abdomen and pelvis 05/19/2024 FINDINGS: LOWER CHEST: Large right pleural effusion, with a degree of filmlike visceral and parietal pleural en hancement, partially improved in size since the prior exam. Trace left pleural effusion with underlying subsegmental atelectasis. LIVER: Normal in size and contour. No focal lesion. BILIARY SYSTEM: No suspicious abnormalities. SPLEEN: Normal size. No focal lesion. PANCREAS: No mass, ductal dilation, or thalia-pancreatic fluid. ADRENALS: Normal; no mass. KIDNEYS: Normal size and contour. No hydronephrosis. 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 URINARY BLADDER: Unremarkable. GASTROINTESTINAL TRACT: No evidence of free air, significant intra-abdominal free fluid, bowel obstru ction or abscess. Mild free ascites. APPENDIX: Normal appendix. LYMPH NODES: No lymphadenopathy. MUSCULOSKELETAL: No acute or suspicious osseous abnormality. ADDITIONAL FINDINGS: Mild prostatic calcifications. Small umbilical hernia containing fat and trace a mount of fluid. Mild to moderate diffuse body wall edema. 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 IMPRESSION: Mild improvement of large right pleural effusion. Visceral and parietal pleural enhancement, may sugg est an infectious or inflammatory process. Malignancy is considered less likely but not entirely excluded. Mild free ascites, stable. No other suspicious masses or adenopathy in the abdomen and pelvis. Other incidental findings as above.
--- NOTE | 2024-05-21 14:50 | P.PN ---
Subjective Date of Service: 05/21/24 Chief Complaint: Congestive heart failure Subjective: No new changes Review of Systems 10-point ROS is otherwise unremarkable Physical Examination - Vital Signs Temperature: 97.5 F Blood Pressure: 155/41 Pulse: 91 Respirations: 16 Pulse Ox (%): 94 - Physical Exam General: Alert, In no apparent distress HEENT: Atraumatic, PERRLA, EOMI Neck: Supple, JVD not distended Respiratory: Clear to auscultation bilaterally, Normal air movement Cardiovascular: Regular rate/rhythm, Abnormal S3, Edema Gastrointestinal: Normal bowel sounds, No tenderness Musculoskeletal: No tenderness Integumentary: No rashes Neurological: Normal speech, Normal tone, Normal affect Lymphatics: No axilla or inguinal lymphadenopathy - Studies Medications List Reviewed: Yes Assessment And Plan - Current Problems (Diagnosis) (1) Acute on chronic diastolic heart failure Current Visit: Yes Status: Acute Plan: Patient Echo shows Grade 2 DD, patient BNP is elevated but also patient is very malnourished with low albumin Increase Lasix to 40 mg IV BID Aldactone 25 mg daily add Coreg 3.125 mg po BID add Lisinopril 2.5 mg daily Monitor input and output and electrolytes patient might benefit from albumin correction to avoid 3rd spacing. also patient need malignancy rule out due to significant weight loss. (2) Aortic regurgitation Current Visit: Yes Status: Acute Plan: looks moderate to severe on echo plan is to repeat echo in 6 months
--- NOTE | 2024-05-21 15:40 | PN ---
Date of Progress Note: 05/21/2024 Subjective: The patient was seen this morning for followup. No new complaints or problems reported. He was lying in bed. His sister was with him at bedside. Denies any new complaints. Objective: Vital Signs: Reviewed. HEENT: Unremarkable. Lungs: Clear to auscultation except some rales noted in lung bases, overall much better than before. Not using accessory muscles of respiration. Heart: Presence of heart murmur unchanged from before. No gallop. Abdomen: Soft. Bowel sounds normal. No guarding, rigidity, tenderness, distention. Extremities: Bilateral leg edema, overall better than before. Still has grade 2 pedal edema involvi ng both lower extremity up to the knees. Laboratory Data: Sodium 141, potassium 3.4, chloride 103, bicarb 35, BUN 22, creatinine 0.65, glucos e 119. Impression: 1.Chronic diastolic heart failure, with acute exacerbation. 2.Moderate to severe aortic regurgitation. 3.Hypokalemia. 4.Pleural effusion. Plan: We will go ahead and continue to follow with Dr. Diaz regarding pleural effusion. The pat ient has used BiPAP at night time since admission. He will no longer need to continue to use it upon discharge from the hospital as per my discussion today with Dr. Diaz. His pleural fluid cytolog y is pending. He is on IV Lasix, which we will continue that and also takes spironolactone 25 mg forrest ly. I will go ahead and increase spironolactone to 25 mg 2 times a day. The patient has lost weight and we are concerned about any underlying malignancy as he does not have any obvious signs symptoms indicating any particular underlying occult malignancy, but at the same time that is one of our schuyler rn. So, I have ordered a CT abdomen and pelvis with contrast to be done today. After discussing his initial CT abdomen, pelvis CAT scan result, which was done in the emergency room and it was without contrast. I have discussed those details with radiologist. All these details were discussed with the patient as well. Plan is to [facility] with outpatient followup next week and he was advised to have regular followup with my o ffice, instrument and control technician and aquatics specialist on a regular basis as per instruction. His nutritional status is poor. Serum albumin was very low. When he came in, it was 2 and I see that his sister has rosemarie t in some Boost that has high protein content and each can have about 30 g of protein, so he was advi sed to have 2 of those cans on a daily basis on top of his 3 meals. TJ/MODL Voice ID: [id number] Report ID: [id number]
[2024-05-21] MEDS: SPIRONOLACTONE 25 MG TABLET PO SCH (20:27)
[2024-05-22 06:17] LABS: Anion Gap 5.1 mEq/L (5.0-15.0); Potassium 4.1 mEq/L (3.5-5.1)
[2024-05-22] MEDS: THIAMINE 200 MG/2 ML INJ IVP SCH (09:00)
--- NOTE | 2024-05-22 09:54 | RAD REPORT ---
EXAMINATION: ONE VIEW CHEST XR CLINICAL INDICATION: Male, 73 years old.,CHF TECHNIQUE: Frontal chest projection is submitted. Examination is limited by patient positioning and t echnique. COMPARISON: 05/19/2024 FINDINGS: The lungs are well inflated. Large right pleural effusion, increased since the prior exam, with under lying airspace opacification. No pneumothorax. The heart is normal in size. IMPRESSION: Large right pleural effusion, increased since the prior exam.
[2024-05-22] MEDS: lisinopriL 5 MG TAB PO SCH (10:02)
[2024-05-22] MEDS: carvediloL 3.125 MG TAB PO SCH (10:02)
--- NOTE | 2024-05-22 11:04 | P.OP ---
Preoperative diagnosis: RIGHT Pleural Effusion Postoperative diagnosis: RIGHT Pleural Effusion Primary procedure: Placement of 6Fr Safe-T Pigtail RIGHT Thoracentesis Tube Anesthesia: 1% lidocaine Estimated blood loss: <1cc Specimen: RIGHT Pleural Fluid Findings: 2 liters, redish clear fluid returned Complications: None Drain(s): Other (RIGHT 6Fr Pigtail Tube) Transferred to: Other (Room) Condition: Good
--- NOTE | 2024-05-22 11:21 | PN ---
Date of Progress Note: 05/22/2024 Subjective: The patient was seen this morning for followup. No new complaints or problems reported by the patient. The patient was on oxygen 2 to 3 L/minute nasal cannula when I saw him this morning, and he appeared weaker today than yesterday. His was with him at bedside. Denies any other ne w specific complaints. Objective: Vital Signs: Reviewed. HEENT: Unremarkable. Lungs: Bilateral good equal air entry with diminished air entry in the lower lung j[place] with rales unchanged from yesterday. Heart: Sounds normal. Abdomen: Soft. Bowel sounds normal. No guarding, rigidity, tenderness, or distention. Extremities: Bilateral leg edema in lower half of both legs. Grade 1 edema, better than before. Laboratory Data: Sodium 141, potassium 4.1, chloride 101, bicarb 39, BUN 20, creatinine 0.75, glucos e 149. Vitamin B12 level 632. Impression: 1.Chronic diastolic heart failure, with acute exacerbation. 2.Aortic regurgitation. 3.Large pleural effusion. 4.Malnutrition, severe. Plan: We will go ahead and continue to follow with Dr. Diaz from Pulmonary Service. We will als o continue to follow with computed tomography technician. The patient will be started on carvedilol and lisinopril, as per recommendation from computed tomography technician. We will continue Lasix and spironolactone. The patient has s evere malnutrition problem with serum albumin level of 2 when he came in and was encouraged to eat 3 meals and use nutritional supplement Boost that he has at his bedside at least 2 times a day. The pa colt is on oxygen as he had hypoxia overnight and maintaining adequate oxygenation with 2 to 3 L/min [place] nasal cannula oxygen, which we will continue that. Dr. Diaz has repeated another chest x-ray and because of persistent right large pleural effusion, he is going to request chest tube placement. Pleural fluid cytology came back negative for malignancy. I will see him tomorrow for followup. TJ/MODL Voice ID: [id number] Report ID: [id number]
--- NOTE | 2024-05-22 14:35 | RAD REPORT ---
EXAMINATION: ONE VIEW CHEST XR CLINICAL INDICATION: Male, 73 years old.,s/p RIGHT thoracentesis - tube placed TECHNIQUE: Frontal chest projection is submitted. Examination is limited by patient positioning and t echnique. COMPARISON: Chest radiograph of earlier the same day FINDINGS: Right thoracostomy tube has been placed along the right lower thoracic cavity. No pneumothorax. Inter evelyn decrease in size of right pleural effusion, with moderate residual effusion. Left lung remains clear apart from mild bibasilar atelectasis. The heart is normal in size. IMPRESSION: Interval placement of right pleural drainage catheter. Interval decrease in size of right pleural effusion. No pneumothorax.
--- NOTE | 2024-05-22 16:11 | P.PN ---
Subjective Date of Service: 05/22/24 Chief Complaint: Congestive heart failure Patient's condition apparently worsened last night became more hypoxic is disoriented tachypneic chest x-ray looks worse Review of Systems General: Weakness Respiratory: Shortness of Breath Physical Examination - Vital Signs Temperature: 98.4 F Blood Pressure: 97/46 Pulse: 67 Respirations: 20 Pulse Ox (%): 97 - Physical Exam General: Alert, Oriented x1 Respiratory: Diminished (Diminished on the right side) Cardiovascular: No edema, Normal S1 S2 - Studies Medications List Reviewed: Yes Assessment And Plan - Current Problems (Diagnosis) (1) Pleural effusion due to congestive heart failure Current Visit: Yes Status: Acute Plan: Patient admitted with congestive heart failure presumed diastolic dysfunction significant aortic regurgitation chest x-ray looks worse pigtail catheter was inserted 2 L drained patient is delirious will also add thiamine patient to SANDRA inhibitor and a beta-comfort as per cardiology pleural fluid cytology shows abu ndant acute inflammation collect predominant effusion doubt malignancy
--- NOTE | 2024-05-22 17:04 | RAD REPORT ---
EXAMINATION: ONE VIEW CHEST XR CLINICAL INDICATION: Male, 73 years old.,Post chest tube insertion TECHNIQUE: Frontal chest projection is submitted. Examination is limited by patient positioning and t echnique. COMPARISON: Chest radiograph of earlier the same day. FINDINGS: Stable positioning of right pleural drainage catheter. Unchanged residual moderate right pleural effu [place] and underlying airspace opacification. No pneumothorax.. The heart is normal in size. IMPRESSION: Stable findings as above.
--- NOTE | 2024-05-23 09:04 | RAD REPORT ---
EXAMINATION: ONE VIEW CHEST XR CLINICAL INDICATION: CHF TECHNIQUE: Frontal chest projection is submitted. Examination is limited by patient positioning and t echnique. COMPARISON: 05/22/2024, more remote studies. FINDINGS: Bilateral pulmonary opacities remain present, mildly improved since comparison study. Moderate right pleural effusion remains essentially unchanged in size The cardiac [place] is severely enlarged in size. No displaced fractures identified. IMPRESSION: Mild improvement in CHF/volume overload pattern since comparison study. Moderate right pleural effusion.
[2024-05-23] MEDS: carvediloL 3.125 MG TAB PO SCH (09:37)
[2024-05-23] MEDS: lisinopriL 5 MG TAB PO SCH (09:38)
[2024-05-23] MEDS: SPIRONOLACTONE 25 MG TABLET PO SCH (09:38)
--- NOTE | 2024-05-23 09:52 | RAD REPORT ---
EXAMINATION: ONE VIEW CHEST XR CLINICAL INDICATION: chest tube removed TECHNIQUE: Frontal chest projection is submitted. Examination is limited by patient positioning and t echnique. COMPARISON: 05/23/2024, more remote studies FINDINGS: Left lung appears emphysematous but clear. The right lung demonstrates atelectasis in the right lung base. Moderate right pleural effusion. The heart is moderately enlarged in size. No displaced fractures identified. IMPRESSION: Moderate right pleural effusion with atelectasis in the right lung base. No measurable pneumothorax.
--- NOTE | 2024-05-23 10:16 | P.PN ---
Subjective Date of Service: 05/23/24 Chief Complaint: Congestive heart failure/right-sided pleural effusion Patient is more alert responsive go home another 2 L of straw-colored fluid was drained using a pigtail catheter Review of Systems General: Weakness Respiratory: Shortness of Breath Physical Examination - Vital Signs Temperature: 97.8 F Blood Pressure: 101/46 Pulse: 71 Respirations: 20 Pulse Ox (%): 98 - Physical Exam General: Alert, In no apparent distress Neck: Supple Respiratory: Clear to auscultation bilaterally Cardiovascular: No edema, Normal pulses - Studies Medications List Reviewed: Yes Assessment And Plan - Current Problems (Diagnosis) (1) Pleural effusion due to congestive heart failure Current Visit: Yes Status: Acute Plan: Is improving pleural fluid was again drained the pigtail catheter was removed by me today was sent off for cytology plan to ambulate physical therapy patient's blood pressure is on the lower side no change in present medication continue with present therapy chest chest x-ray reviewed he has lower third pleural effusion
--- NOTE | 2024-05-23 12:22 | PN ---
Date of Progress Note: 05/23/2024 Subjective: The patient was seen this morning for followup. His chest tube was removed by Dr. Jordi carrion today and it drained approximately 2000 cc of fluid. The patient had 1500 cc of fluid removed in itially on the day of admission with interventional radiologist with thoracentesis and now 2000 cc wi th the chest tube. This morning when I saw him, he denied any specific complaints. Objective: Vital Signs: Reviewed. HEENT: Unremarkable. Lungs: Clear to auscultation, not in any respiratory distress. Heart: Sounds normal. Abdomen: Soft. Bowel sounds normal. No guarding, rigidity, tenderness, distention. Extremities: Grade 1 edema involving lower 1/4 of both legs. Overall, much better than before. Laboratory Data: Chest x-ray shows significant improvement in right-sided pleural effusion. There i s still small amount of pleural effusion remains at the lung base. Impression: 1.Right pleural effusion. 2.Severe malnutrition. 3.Chronic diastolic heart failure, with acute exacerbation. 4.Aortic regurgitation. Plan: We will go ahead and continue diuretic therapy, Lasix per order, which is 20 mg twice a day. The patient's carvedilol, lisinopril, as well as spironolactone will be kept on hold for systolic blo od pressure less than 110. We will repeat blood work tomorrow morning. Continue to follow with Dr. Diaz from pulmonary service. Physical Therapy to be consulted to help ambulate the patient. The patient was encouraged to eat his meals and drink his nutritional supplement, Boost, as suggested. We will see him tomorrow for followup. TJ/MODL Voice ID: [id number] Report ID: [id number]
[2024-05-24 07:13] LABS: Absolute Eosinophils 0.1 K/uL (0-0.5); Absolute Lymphocytes (CBC) 0.5 K/uL (0.7-4.9); Absolute Monocytes 0.6 K/uL (0.1-1.3); Absolute Neutrophil 8.8 K/uL (1.8-8.0); Basophils % 0.3 % (0-1.3); Eosinophils % 0.9 % (0-4.4); Hemoglobin 14.3 g/dL (13.6-17.9); Lymphocytes % 5.4 % (15.3-44.8); MCH 30.4 pg (27.0-35.0); MCHC 31.7 g/dL (32.0-36.0); MCV 95.7 fL (80-100); MPV 7.6 fL (7.6-11.3); Monocytes % 5.5 % (3.3-12.3); Neutrophils % 87.9 % (41.7-73.7); Platelets 277 thou/uL (152-406); RBC Red Blood Cell Count 4.69 M/uL (4.33-5.43); Red Cell Distribution Width 14.4 % (12.1-15.2)
[2024-05-24 07:26] LABS: Anion Gap 3.8 mEq/L (5.0-15.0); Potassium 3.8 mEq/L (3.5-5.1)
--- NOTE | 2024-05-24 07:49 | RAD REPORT ---
EXAMINATION: ONE VIEW CHEST XR CLINICAL INDICATION: R pleural effusion TECHNIQUE: Frontal chest projection is submitted. Examination is limited by patient positioning and t echnique. COMPARISON: 05/23/2024, 05/22/2024 FINDINGS: Left lung is grossly clear. Moderate right pleural effusion and atelectasis in the right lung base ap pears stable. The heart is moderately enlarged in size. No displaced fractures identified. IMPRESSION: No significant change since yesterday's examination.
[2024-05-24 08:07] LABS: White Blood Cell Scan OK (OK)
[2024-05-24 08:08] LABS: Blood Morphology Comment NOT SEEN (NOT SEEN); Platelet Estimate ADEQ
--- NOTE | 2024-05-24 10:45 | P.PN ---
Subjective Date of Service: 05/24/24 Chief Complaint: Congestive heart failure/right-sided pleural effusion Subjective: No new changes, No C/O voiced, Tolerating diet, Ambulating, Improving Review of Systems 10-point ROS is otherwise unremarkable Physical Examination - Vital Signs Temperature: 97.9 F Blood Pressure: 107/49 Pulse: 62 Respirations: 16 Pulse Ox (%): 97 - Physical Exam General: Alert, In no apparent distress HEENT: Atraumatic, PERRLA, EOMI Neck: Supple, JVD not distended Respiratory: Clear to auscultation bilaterally, Normal air movement Cardiovascular: Regular rate/rhythm, Normal S1 S2 Gastrointestinal: Normal bowel sounds, No tenderness Musculoskeletal: No tenderness Integumentary: No rashes Neurological: Normal speech, Normal tone, Normal affect Lymphatics: No axilla or inguinal lymphadenopathy - Studies Medications List Reviewed: Yes Assessment And Plan - Current Problems (Diagnosis) (1) Acute on chronic diastolic heart failure Current Visit: Yes Status: Acute Plan: Patient Echo shows Grade 2 DD, patient BNP is elevated but also patient is very malnourished with low albumin improved with IV diuresis switch Lasix to 40 mg po daily for 1 week then continue 20 mg daily Aldactone 25 mg daily Coreg 3.125 mg po BID Lisinopril 2.5 mg daily outpatient follow up with cardiology. (2) Aortic regurgitation Current Visit: Yes Status: Acute Plan: looks moderate to severe on echo plan is to repeat echo in 6 months
[2024-05-24 14:53] VITALS: O2SAT 98
[2024-05-24 16:33] VITALS: BP 115/55; TEMP 98.1
--- NOTE | 2024-05-25 00:41 | DS ---
Date of Discharge: 05/24/2024 Disposition: Discharged to go home. Physical Examination: HEENT: Unremarkable. Lungs: Clear to auscultation except minimal basal rales noted in right lung base, not in any respira tory distress, and diminished air entry in the right lung base. Heart: Sounds normal. Presence of systolic murmur, unchanged from admission. Abdomen: Soft. Bowel sounds normal. No guarding, rigidity, tenderness, distention. Extremities: Very trace edema of dorsum feet. Otherwise, rest of the leg swelling has completely re solved. Discharge Medications And Instructions: 1.Furosemide 20 mg 1 tablet by mouth daily and spironolactone 25 mg 1 tablet by mouth daily. 2.Follow up at my office this week on . 3.Follow up with Dr. Diaz and Dr. Ho in 1 to 2 weeks. Laboratory Data: Upon admission, sodium 139, potassium 3.9, chloride 105, bicarb 28, BUN 27, creatin ine 0.70. Liver function tests were unremarkable. TSH 2.310. Vitamin B12 level was normal. Tropon in first set 28.5, second set 33.6. Initial proBNP 8863 and repeat level was 10,340. For CBC upon a dmission, white count 9.8, hemoglobin 14.8, platelets 310. Hospital Course: This is a 73-year-old very pleasant male patient, who came into emergency room with complaints of leg swelling and shortness of breath. Please see dictated H and P for more informatio n. After the patient was evaluated in the emergency room, he was admitted to the hospital. He was s een in consultation from Cardiology Service and Pulmonary Service. The patient had large right-sided pleural effusion and on the day of admission, he had thoracentesis done by interventional radiologis t, which resulted in removal of about 1500 cc of fluid. Fluid culture has remained negative. Cytolo gy came back negative for any malignancy. The patient's right pleural effusion got worse again on a repeat chest x-ray during this hospitalization, so Dr. Diaz consulted Dr. Hooker who placed the chest tube that resulted in drainage of approximately 2000 cc of fluid and after that over the weeken d, Dr. Diaz removed this chest tube and repeat chest x-ray has shown improvement in the pleural e ffusion compared to prior chest x-ray. The patient's shortness of breath has improved. His oxygenat ion has remained normal without using supplemental oxygen. He had significant generalized weakness a nd Physical Therapy was consulted and he has started to ambulate well with therapy. He has very loud systolic murmur and brick catcher was consulted, Dr. Ho. The patient has moderate to severe aort ic regurgitation, probably severe as per my discussion with Dr. Ho, who is going to continue to f low up on outpatient basis for this valvular heart disease and provide further intervention at appr opriate time. The patient was started on IV Lasix and subsequently spironolactone, carvedilol, and l isinopril was added and over the weekend, most of this medications were kept on hold because his bloo d pressure was running on the low side. Today, he is doing much better and almost every day we saw h im during this hospitalization, he wanted to go home and today he was getting agitated and [facility] not want to stay in the hospital any longer. With physical therapy, he amb ulated couple of times outside his room in the hallway and he was independent this afternoon as far a s getting out of bed and going to the bathroom is concerned, so overall his condition has improved an d he was discharged to go home in stable condition. Social Service was consulted to help make arrang ements for home health, skilled care, and physical therapy at home and he declined to get any of this services. CAT scan of the chest per PE protocol was negative for pulmonary embolism or any other si gnificant intrathoracic finding and CAT scan of the abdomen and pelvis with contrast was also negativ e for any significant acute finding. There was no evidence of any malignancy anywhere that we could see. The patient was discharged to go home in stable condition today with above-mentioned medication and instructions. Final Diagnoses: 1.Congestive heart failure, chronic, diastolic, with acute exacerbation. 2.Severe aortic regurgitation. 3.Hypertension. 4.Hyperlipidemia. 5.Osteoarthritis, multiple sites. 6.Benign prostatic hypertrophy. 7.Memory loss. Total time spent today was 40 minutes. TJ/MODL Voice ID: [id number] Report ID: [id number]
[2024-05-25] MEDS ORDERED: FUROSEMIDE 40 MG TABLET PO SCH (09:00)
[2024-05-27 20:50] LABS: TOTAL PROTEIN, PLEURAL FLUID 3.8 g/dL
== END 2024-05-24 17:39 | disposition home health service (06) | DRG 291 ==
LOC: ER 08:24 → ERHOLD 11:40 → 2ND 14:37
PROVIDERS: ADMIT Internal Medicine; ATTEND Internal Medicine
PROC: 5A09457 Assistance with Respiratory Ventilation, 24-96 Consecutive Hours, Continuous Positive Airway Pressure (ICD-10-PCS; 2024-05-19)
PROC: 0W993ZX Drainage of Right Pleural Cavity, Percutaneous Approach, Diagnostic (ICD-10-PCS; principal; 2024-05-22)
DX: I11.0 Hypertensive heart disease with heart failure (principal); E43 Unspecified severe protein-calorie malnutrition; I50.33 Acute on chronic diastolic (congestive) heart failure; I38 Endocarditis, valve unspecified; Q25.43 Congenital aneurysm of aorta; E87.6 Hypokalemia; E78.5 Hyperlipidemia, unspecified; I35.1 Nonrheumatic aortic (valve) insufficiency; M19.09 Primary osteoarthritis, other specified site; N40.0 Benign prostatic hyperplasia without lower urinary tract symptoms; I08.3 Combined rheumatic disorders of mitral, aortic and tricuspid valves; R41.3 Other amnesia; Z68.21 Body mass index [BMI] 21.0-21.9, adult; Z87.891 Personal history of nicotine dependence
CPT/HCPCS: 32555; 36415; 70450; 71045; 71250; 71275; 74176; 74177; 76604; 80048; 80076; 81003; 82607; 82945; 83615; 83690; 83735; 83880; 84157; 84311; 84443; 84484; 85025; 85610; 87015; 87070; 87102; 87116; 87206; 88108; 88305; 89050; 93005; 93306; 93970; 94660; 94760; 96360; 96361; 97116; 97161; 97530; 99285; J1650; J1940; J3411; J7030; Q9967